=== PATIENT | male | born 1950 | race Caucasian/White ===

== ENCOUNTER 2019-08-25 17:52 | Emergency (ER) | payer MEDICARE, OTHER ==
[2019-08-25] MEDS ORDERED: Ibuprofen TAB* 600 MG PO ONE (21:15)
[2019-08-25] MEDS ORDERED: Cyclobenzaprine TAB* 10 MG PO ONE (21:15)
--- NOTE | 2019-08-25 21:25 | UC ---
Back Pain HPI - HPI Summary HPI Summary: PATIENT PRESENTS WITH SEVERAL DAYS OF PAIN IN THE LEFT UPPER BACK/POSTERIOR SHOULDER. DENIES ANY INJURY OR TRAUMA BUT STATES HE IS ALWAYS DOING A LOT OF HEAVY LIFTING. STATES PAIN WORSENS WHEN HE MOVES HIS ARM OR WHEN HE COUGHS AND WANTS TO RULE OUT ANY KIND OF PNEUMONIA, HOWEVER HE DENIES ANY ACUTE RESPIRATORY SYMPTOMS NO INCREASE IN COUGH, NO NASAL CONGESTION, SORE THROAT, SHORTNESS OF BREATH. NO CHEST PAIN. - History of Current Complaint Chief Complaint: UCBackPain Stated Complaint: LOWER BACK PAIN Time Seen by Provider: 08/25/19 20:26 Hx Obtained From: Patient Onset/Duration: Gradual Onset, Lasting Days, Still Present Timing: Constant Severity Initially: Moderate Severity Currently: Moderate Pain Intensity: 10 Pain Scale Used: 0-10 Numeric Character: Sharp Aggravating Factor(s): Movement Alleviating Factor(s): Rest Associated Signs And Symptoms: Positive: Negative - Allergies/Home Medications Allergies/Adverse Reactions: Allergies Allergy/AdvReac Type Severity Reaction Status Date / Time No Known Allergies Allergy Verified 08/25/19 18:27 Home Medications: Home Medications Amlodipine Besylate [Norvasc] 20 mg PO DAILY 08/25/19 [History Confirmed ] Aspirin TAB* [Aspirin 325 MG TAB*] 325 mg PO DAILY 08/25/19 [History Confirmed 08/25/19] Atenolol TAB* [Tenormin TAB* 50 MG] 100 mg PO DAILY 08/25/19 [History Confirmed 08/25/19] Cyclobenzaprine TAB* [Flexeril TAB*] 10 mg PO BID PRN #30 tab 08/25/19 [Rx] Flecainide TAB* [Tambocor TAB*] 150 mg PO DAILY 08/25/19 [History Confirmed ] Simvastatin 20 mg PO DAILY 08/25/19 [History Confirmed 08/25/19] Tamsulosin CAP* [Flomax CAP*] 0.4 mg PO DAILY 08/25/19 [History Confirmed ] PMH/Surg Hx/FS Hx/Imm Hx Endocrine History: Diabetes Cardiovascular History: Atrial Fibrillation - Surgical History Surgical History: Yes Surgery Procedure, Year, and Place: shoulders,. knees,. hands - Family History Known Family History: Positive: Non-Contributory - Social History Alcohol Use: Weekly Alcohol Amount: once Substance Use Type: None Smoking Status (MU): Former Smoker Length of Time of Smoking/Using Tobacco: 20 years When Did the Patient Quit Smoking/Using Tobacco: 30 years ago Review of Systems All Other Systems Reviewed And Are Negative: Yes Constitutional: Positive: Negative Skin: Positive: Negative Respiratory: Positive: Negative Cardiovascular: Positive: Negative Gastrointestinal: Positive: Negative Musculoskeletal: Positive: Myalgia. Negative: Arthralgia, Decreased ROM Physical Exam Triage Information Reviewed: Yes Appearance: Well-Appearing, No Pain Distress, Well-Nourished Vital Signs: Initial Vital Signs Temp 99.7 F 08/25/19 18:18 Pulse 85 08/25/19 18:18 Resp 20 08/25/19 18:18 BP 130/70 08/25/19 18:18 Pulse Ox 100 08/25/19 18:18 Vital Signs Reviewed: Yes Eyes: Positive: Conjunctiva Clear ENT: Positive: Hearing grossly normal Neck: Positive: Supple Respiratory: Positive: No respiratory distress, No accessory muscle use Cardiovascular: Positive: Pulses Normal Abdomen Description: Positive: Soft Musculoskeletal: Positive: ROM Intact, No Edema, Other: - TTP LEFT TRAPEZIOUS MUSCLE Neurological: Positive: Alert Psychological: Positive: Age Appropriate Behavior Skin: Negative: Rashes Diagnostics - Radiology CXR Radiology Interpretation Completed By: ED Physician Summary of Radiographic Findings: NO ACUTE PROCESS Back Pain Course/Dx - Course Course Of Treatment: CHEST X-RAY DOES NOT SHOW ANY ACUTE PROCESS ON MY INITIAL INTERPRETATION. RADIOLOGY READ IS PENDING. PRESENTATION MORE CONSISTENT WITH STRAIN OF LEFT TRAPEZIUS MUSCLE THAN WITH ANYTHING PULMONARY. PATIENT DOES NOT HAVE ANY COUGH , FEVER, CONGESTION OR OTHER RESPIRATORY SYMPTOMS. NO CHEST PAIN. STATES HE IS ALWAYS DOING A LOT OF HEAVY LIFTING. ADVISED OTC ANALGESICS NEEDED. MUSCLE RELAXER PRESCRIBED FOR USE IF NEEDED. ENCOURAGED RANGE OF MOTION EXERCISES, HEAT, MASSAGE. FOLLOW-UP IF NOT IMPROVING OVER THE NEXT FEW DAYS. - Differential Dx/Diagnosis Provider Diagnosis: Strain of left trapezius muscle Discharge ED - Sign-Out/Discharge Documenting (check all that apply): Patient Departure All imaging exams completed and their final reports reviewed: No - Discharge Plan Condition: Stable Disposition: HOME Prescriptions: Cyclobenzaprine TAB* [Flexeril TAB*] 10 mg PO BID PRN #30 tab PRN Reason: Pain Patient Education Materials: Muscle Strain (ED) Referrals: Erna,Armando, MD [Primary Care Provider] - If Needed Additional Instructions: CHEST X-RAY DOES NOT SHOW ANYTHING ACUTE ON MY INITIAL INTERPRETATION. WE WILL CALL YOU IF THE RADIOLOGY READ DIFFERS. YOUR PRESENTATION AND PHYSICAL EXAM ARE MORE CONSISTENT WITH A MUSCLE STRAIN. TAKE IBUPROFEN NEEDED FOR DISCOMFORT. MUSCLE RELAXER BEFORE BED. REST, STRETCH, HEAT, MASSAGE. FOLLOW- UP WITH YOUR PCP IF YOUR SYMPTOMS DO NOT IMPROVE NEXT FEW DAYS. - Billing Disposition and Condition Condition: STABLE Disposition: Home
[2019-08-25 21:43] VITALS: BP 146/82
--- NOTE | 2019-08-25 21:52 | UC ---
- Progress Note Progress Note: RADIOLOGY REPORT REVIEWED. NO ACUTE CARDIOPULMONARY DISEASE. NO CHANGE IN MANAGEMENT. Course/Dx - Diagnoses Provider Diagnoses: Strain of left trapezius muscle Discharge ED - Sign-Out/Discharge Documenting (check all that apply): Post-Discharge Follow Up All imaging exams completed and their final reports reviewed: Yes - Discharge Plan Condition: Stable Disposition: HOME Prescriptions: Cyclobenzaprine TAB* [Flexeril TAB*] 10 mg PO BID PRN #30 tab PRN Reason: Pain Patient Education Materials: Muscle Strain (ED) Referrals: Armando Umanzor MD [Primary Care Provider] - If Needed Additional Instructions: CHEST X-RAY DOES NOT SHOW ANYTHING ACUTE ON MY INITIAL INTERPRETATION. WE WILL CALL YOU IF THE RADIOLOGY READ DIFFERS. YOUR PRESENTATION AND PHYSICAL EXAM ARE MORE CONSISTENT WITH A MUSCLE STRAIN. TAKE IBUPROFEN NEEDED FOR DISCOMFORT. MUSCLE RELAXER BEFORE BED. REST, STRETCH, HEAT, MASSAGE. FOLLOW- UP WITH YOUR PCP IF YOUR SYMPTOMS DO NOT IMPROVE NEXT FEW DAYS. - Billing Disposition and Condition Condition: STABLE Disposition: Home
== END 2019-08-25 21:20 | disposition home or self-care (01) ==
LOC: UCEAST 17:52
DX: S29.012A Strain of muscle and tendon of back wall of thorax, initial encounter (principal); E11.9 Type 2 diabetes mellitus without complications; I48.91 Unspecified atrial fibrillation; X58.XXXA Exposure to other specified factors, initial encounter; Y92.9 Unspecified place or not applicable; Z79.82 Long term (current) use of aspirin; Z79.899 Other long term (current) drug therapy; Z87.891 Personal history of nicotine dependence
CPT/HCPCS: 71046; 99212; A9270-GY; G0463